=== PATIENT | male | born 1965 | race Caucasian/White ===

== ENCOUNTER → 2016-12-18 | Outpatient (CLI) | payer OTHER ==
[~2016-12-18] MED LIST: ALDACTONE25 MG PO; ALTACE PO; AMOXICILLIN PO; ASPIRIN PO; ASPIRIN81 M2 PO; B COMPLEX1 CA1 PO; BAYER ASPIRIN325 M1 PO; CENTRUM SILVER PO; CLEOCIN HCL300 M1 PO; CO Q-10200 MG PO; COREG12.5 MG PO; CRANBERRY500 M1 PO; CRESTOR5 MG PO; ENTRESTO 24 MG1 EACH PO; FISH OIL 1,001000 M1 PO; GABAPENTIN400 MG PO; GLUCOPHAGE500 MG PO; JANUVIA50 MG PO; JENTADUETO 2.51 EAC2 PO; KEFLEX500 M2 PO; LASIX PO; LIPITOR20 MG PO; LIPITOR40 MG PO; LIPITOR80 MG PO; LORTAB 5-325 M1 EACH PO; METFORMIN HCL1000 M1 PO; MILK THISTLE175 M2 PO; NEURONTIN PO; NEURONTIN800 MG PO; TRADJENTA5 MG PO; VITAMIN B122500 MCG PO
--- NOTE | ~2016-12-18 | EKG ---
PATIENT: KENYA ACEVEDO UNIT #: [id number] Ventricular Rate: 87 BPM Atrial Rate: 87 BPM P-R Interval: 182 ms QRS Duration: 98 ms Q-T Interval: 344 ms QTC Calculation(Bezet): 413 ms P Ald[place]: 45 degrees Calculated R [place]: 58 degrees Calculated T [place]: 65 degrees Diagnosis Line: Normal sinus rhythm Diagnosis Line: Normal ECG Diagnosis Line: When compared with ECG of 10-DEC-2016 13:39, Diagnosis Line: Nonspecific T wave abnormality, improved in Diagnosis Line: Inferior leads Diagnosis Line: Confirmed by SEEMA LEA MD ([id number]) on 12/18/2016 Diagnosis Line: 6:22:52 PM INTERPRETING MD: LEONORA ARIAS
[2016-12-18 12:20] LABS: HEMATOCRIT 46.1 % (38.0-50.0); HEMOGLOBIN 15.5 gm/dL (13.0-16.0); MEAN CELL VOLUME 86.8 FL (83-96); MEAN CORPUSCULAR HEMOGLOBIN 29.2 PG (28-34); MEAN CORPUSCULAR HGB CONC 33.7 g/dL (30-36); MEAN PLATELET VOLUME 7.4 FL (6.5-11.5); RED BLOOD COUNT 5.31 X10e (3.90-5.60); RED CELL DISTRIBUTION WIDTH 14.4 % (11.0-15.5); WHITE BLOOD COUNT 9.3 X10e3 (4.0-10.5)
[2016-12-18 12:37] LABS: PROTHROMBIN TIME (PATIENT) 10.6 SECONDS (9.6-11.5)
[2016-12-18 13:24] LABS: BLOOD UREA NITROGEN 41 mg/dL (9-23); BUN/CREATININE RATIO 31.53; CALCIUM SERUM 9.5 mg/dL (8.4-10.2); CARBON DIOXIDE 25 mmol/L (22-31); CHLORIDE 98 mmol/L (100-111); CREATININE SERUM 1.3 mg/dL (0.6-1.4); GLOM FILT RATE Estimated ABOVE60 mL/min (>60); GLUCOSE FASTING 354 mg/dL (70-110); POTASSIUM 5.1 mmol/L (3.5-5.1); SODIUM 133 mmol/L (135-145)
== END | disposition home or self-care (01) ==
LOC: CCVL 11:50
PROVIDERS: Internal Medicine Cardiovascular Disease
DX: I50.20 Unspecified systolic (congestive) heart failure (principal); I25.10 Atherosclerotic heart disease of native coronary artery without angina pectoris; Z95.5 Presence of coronary angioplasty implant and graft; E11.65 Type 2 diabetes mellitus with hyperglycemia; I25.2 Old myocardial infarction; I42.9 Cardiomyopathy, unspecified
CPT/HCPCS: 36415; 80048; 85027; 85610; 85730; 93005; C1769; C1887; C1894; J1644; J2250; J3010

== ENCOUNTER → 2017-01-22 | Outpatient (CLI) | payer OTHER ==
[2017-01-22 16:21] LABS: BUN/CREATININE RATIO 39.09; CALCIUM SERUM 9.7 mg/dL (8.4-10.2); CREATININE SERUM 1.1 mg/dL (0.6-1.4); GLOM FILT RATE Estimated 76.8 mL/min (>60); POTASSIUM 5.4 mmol/L (3.5-5.1)
== END | disposition home or self-care (01) ==
LOC: CLAB 15:36
PROVIDERS: Internal Medicine Cardiovascular Disease
DX: I50.9 Heart failure, unspecified (principal); I25.10 Atherosclerotic heart disease of native coronary artery without angina pectoris; E11.9 Type 2 diabetes mellitus without complications
CPT/HCPCS: 36415; 80048; 83880